=== PATIENT | male | born 1980 | race Two or more races ===

== ENCOUNTER 2018-12-05 02:40 | Emergency (ER) | payer SELFPAY ==
[~2018-12-05] VITALS: Ht 172.7 cm; Wt 65.3 kg
[2018-12-05 02:46] VITALS: BP 142/79
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
--- NOTE | 2018-12-05 02:57 | NUR ---
RADIOLOGY AT BEDSIDE
--- NOTE | 2018-12-05 03:43 | NUR ---
Patient discharged to home in stable condition. Written and verbal after care instructions given. Patient verbalizes understanding of instruction.
== END 2018-12-05 03:46 | disposition home or self-care (01) ==
LOC: ER 02:48
DX: R07.89 Other chest pain (principal); F17.200 Nicotine dependence, unspecified, uncomplicated; Y08.89XA Assault by other specified means, initial encounter; Y93.89 Activity, other specified; Y92.89 Other specified places as the place of occurrence of the external cause; Y99.8 Other external cause status
CPT/HCPCS: 71046